=== PATIENT | male | born 1985 | race Caucasian/White ===

== ENCOUNTER → 2016-08-04 | Day surgery (SDC) | payer OTHER ==
[2016-07-13 11:16] VITALS: Ht 177.8 cm; Wt 66.8 kg
[~2016-08-04] VITALS: Ht 177.8 cm; Wt 66.8 kg
[~2016-08-04] MED LIST: ATROPINE SULFATE 0.1 MG/ML 5ML SYR IV PRN; BUPIVACAINE/EPINEPHRINE 0.5% MPF 1:200,000 30 ML VIAL ONE; CEFAZOLIN 2000 MG/60 ML D5W IV SCH; DEXAMETHASONE SOD INJ 4 MG/ML VIAL ONE; EpHEDrine SULFATE INJ 50 MG/ML AMP IV PRN; FENTANYL CITRATE INJ 50 MCG/1 ML 2 ML VIAL IV PRN; FENTANYL CITRATE INJ 50 MCG/1 ML 2 ML VIAL ONE; HYDR-5688 PO; HYDROCODONE/ACETAMOPHEN 5/325MG TAB PO PRN; LACTATED RINGER'S 1000ML 1,000 ML IV SCH; LIDOCAINE HCL 2% 2 ML VIAL (20MG/ML) ONE; MIDAZOLAM HCL 1 MG/ML 2ML VIAL ONE; ONDANSETRON INJ 2 MG/ML 2 ML VIAL IV PRN; ONDANSETRON INJ 2 MG/ML 2 ML VIAL ONE; PROPOFOL IV EMULSION 10 MG/ML 20 ML VIAL IV ONE; PROT1POW PO; SODIUM CHLORIDE 0.9% 1000ML 1,000 ML IV SCH
--- NOTE | 2016-08-04 07:58 | Discharge Instructions ---
Discharge Instructions Date of Service August 04, 2016. Admission Reason for Admission: Right Inguinal Hernia Discharge Discharge Diagnosis / Problem: Right Inguinal Hernia Discharge Goals Goal(s): Decrease discomfort, Improve function Activity Recommendations Activity Limitations: as noted below Lifting Limitations: no more than 10 pounds Exercise/Sports Limitations: until after follow-up appointment May Resume Sexual Activity: after follow-up appointment Shower/Bathe: tomorrow . Instructions / Follow-Up Instructions / Follow-Up Please follow-up with Dr. Gonzalez in the office in 1-2 weeks. Please call the office at [phone] to make an appointment if you do not have one already. Any questions or concerns please call [phone]. Current Hospital Diet Patient's current hospital diet: Discharge Diet Recommended Diet: Regular Diet Pending Studies Studies pending at discharge: no Medical Emergencies . Who to Call and When: Medical Emergencies: If at any time you feel your situation is an emergency, please call 911 immediately. . Non-Emergent Contact Non-Emergency issues call your: Primary Care Provider, Surgeon Call Non-Emergent contact if: temperature is above 101.5, your pain is not controlled, wound has increased drainage, wound has increased redness . "Provider Documentation" section prepared by Manasa Pratt. . VTE Core Measure Inpt VTE Proph given/why not?: SCD's [place] Drug Monitoring Program Search Results: patient reviewed within database, no issues identified
--- NOTE | 2016-08-04 07:58 | History & Physical Bridge Note ---
H&P Re-Evaluation Bridge Note: I have examined the patient, reviewed the History & Physical and in the interval since the performance of the History & Physical I have noted the following changes of clinical significance: No changes noted
--- NOTE | 2016-08-04 08:08 | History and Physical ---
History & Physical Date August 04, 2016. History of Present Illness The patient is a 31 year old male with complaints of right groin pain. Additional History Hepatic Disease: No Endocrine Disorder: No Kidney Disease: No Hypertension: No Heart Disease: No Bleeding Tendencies: No Infectious Diseases: No Allergies Coded Allergies: No Known Allergies (Unverified , 08/04/16) Home Medications Scheduled Protein (Protein), 1 DOSE PO DAILY Scheduled PRN Hydrocodone/Acetaminophen 5MG/325MG ([place] 5MG/325MG), 1-2 TABLETS PO Q4H PRN for Pain Physical Examination Skin: warm/dry Eyes: normal inspection, EOMI Head: normocephalic Neck: supple Respiratory/Chest: lungs clear, no respiratory distress Cardiovascular: regular rate, rhythm, no edema Abdomen / GI: normal bowel sounds, non tender, + pertinent finding (+RIH. penis/testicles normal. ) Diagnosis symptomatic right inguinal hernia Plan of Treatment discussed options /risks of surgery ( bleeding/infection/dvt/pe/infection of mesh requiring explant/chronic post op pain/injury to sperm cord etc...) answered all his questions. he would like to proceed with open repair with mesh.
--- NOTE | 2016-08-04 09:25 | [facility] Operative Report ---
Operative Report Operative Date August 04, 2016. Pre-Operative Diagnosis Right Inguinal Hernia Post-Operative Diagnosis large direct RIH Procedure(s) Performed open right inguinal hernia repair with plug/patch mesh Surgeon Dr. Gonzalez Air Pollution Compliance Inspector Surgeon(s) Armen Pratt PA-C Estimated Blood Loss 5ML Findings large direct hernia Specimens none per surgeon Anesthesia gen with LMA Complication(s) None Disposition Recovery Room / PACU I attest to the content of the Intraoperative Record and any orders documented therein. Any exceptions are noted below.
--- NOTE | 2016-08-04 10:05 | Anesthesia Progress Nt - [facility] ---
Anesthesia Post Op Note Date & Time August 04, 2016 at 10:05 Vital Signs Pain Intensity: 0 Vital Signs Past 12 Hours Date Time Temp Pulse Resp B/P Pulse Ox O2 Delivery O2 Flow Rate FiO2 08/04/16 10:00 36.4 68 20 113/74 99 Room Air 08/04/16 09:52 69 11 08/04/16 09:52 67 11 100 08/04/16 09:51 108/67 08/04/16 09:48 62 17 100 08/04/16 09:48 62 17 08/04/16 09:47 60 17 100 08/04/16 09:47 60 17 08/04/16 09:46 109/69 08/04/16 09:42 66 13 08/04/16 09:42 68 13 100 08/04/16 09:41 76 12 08/04/16 09:41 77 12 100 08/04/16 09:40 104/69 08/04/16 09:37 63 17 08/04/16 09:37 63 17 100 08/04/16 09:36 69 11 08/04/16 09:36 70 11 100 08/04/16 09:35 111/73 08/04/16 09:34 68 11 100 08/04/16 09:34 69 11 08/04/16 09:33 76 16 100 08/04/16 09:33 76 16 08/04/16 09:31 116/69 08/04/16 09:29 117/68 08/04/16 09:28 86 08/04/16 09:28 86 100 08/04/16 09:28 36.8 85 18 117/68 100 Mask 8 08/04/16 07:10 36.7 76 20 105/71 100 Room Air Notes Mental Status: alert / awake / arousable, participated in evaluation Pt Amnestic to Procedure: Yes Nausea / Vomiting: adequately controlled Pain: adequately controlled Airway Patency, RR, SpO2: stable & adequate BP & HR: stable & adequate Hydration State: stable & adequate Anesthetic Complications: no major complications apparent
[2016-08-04 10:06] VITALS: TEMP 36.4
--- NOTE | 2016-08-04 10:35 | OPERATIVE REPORT ---
DATE OF OPERATION: 08/04/2016 PREOPERATIVE DIAGNOSIS: Right inguinal hernia. POSTOPERATIVE DIAGNOSIS: Large direct right inguinal hernia. PROCEDURES: Open right inguinal hernia repair with plug and patch mesh. SURGEON: Dr. Gonzalez. SOCIOLOGY PROFESSOR: Manasa Pratt PA-C. ESTIMATED BLOOD LOSS: 5 mL COMPLICATION: No immediate. ANESTHESIA: General with laryngeal mask airway. OPERATIVE NOTE: After informed consent was obtained, the patient was taken to the operating suite and placed in supine position. After successful intubation, the lower groin was shaved and sterilely prepped and draped in usual fashion. An inguinal incision was made with a 15 blade scalpel and carried down through the soft tissue using electrocautery. The external oblique aponeurosis was skeletonized. It was opened with a fresh blade and carried down through the external ring with Metzenbaum scissors as well as for several centimeters proximally. We immediately noticed a rather large bulge coming through the floor of the canal. We were able to skeletonize the cord and cord structures and gently tease them off the pubic bone and place a [place] around it. We were able to tease the hernia and hernia sac away from the cord and cord structures, again revealing a large direct hernia. We did inspect the cord itself for an indirect hernia and there was no hernia sac present. Because of the large size and nature, it lended itself to a plug and patch repair. We used a medium size plug and secured it to the shelving portion of the inguinal ligament laterally and the mid abdominal muscles medially. We then used a li-holed piece of polypropylene mesh as an onlay. It was secured distally to Aiden's ligament, laterally along the shelving portion of Poupart's ligament, and medially along the midline musculature. The "arms" were wrapped around behind the cord and cord structures and secured to underlying muscle. The mesh did not fit too tight and did not impinge upon the cord. It laid nice and flat and tension free. We thoroughly irrigated the wound, there was adequate hemostasis. We injected around the periphery of the mesh with Marcaine for postoperative analgesia. We then closed the external oblique aponeurosis with 2-0 Vicryl in a running fashion. Soft tissue was irrigated and closed using 3-0 Vicryl and 4-0 Monocryl for skin. Some additional Marcaine was injected around the skin. Marcaine was injected around the wound for postoperative analgesia and Dermabond glue used as a skin dressing. The patient was awakened, extubated, and transferred to recovery in stable condition. I attest to the content of the Intraoperative Record and any orders documented therein. Any exceptio ns are noted below.
[2016-08-04 10:43] VITALS: BP 103/65; PULSE 64; O2SAT 100
== END | disposition home or self-care (01) ==
LOC: X.SURG 06:49
PROVIDERS: ATTEND Surgery
DX: K40.90 Unilateral inguinal hernia, without obstruction or gangrene, not specified as recurrent (principal)